=== PATIENT | male | born 1975 | race Caucasian/White ===

== ENCOUNTER 2017-03-26 09:39 | Emergency (ER) | payer OTHER ==
[~2017-03-26] VITALS: Ht 172.7 cm; Wt 72.6 kg
[~2017-03-26 09:39] MED LIST: BENADRYL25 MG PO; PENICILLIN VK250 MG PO; PYRIDIUM100 MG PO; TAMSULOSIN HCL0.4 MG PO
[2017-03-26] MEDS ORDERED: FLOMAX0.4 MG PO (10:00)
[2017-03-26] MEDS ORDERED: HYDROCODON-ACE1 EAC7 PO (10:01)
[2017-03-26 10:02] LABS: URINE BILIRUBIN 1+ (Negative); URINE BLOOD 2+ (Negative); URINE COLOR YELLOW; URINE GLUCOSE-RANDOM* NEGATIVE (Negative); URINE KETONES TRACE (Negative); URINE LEUKOCYTES-REFLEX NEGATIVE (Negative); URINE PROTEIN (DIPSTICK) TRACE (Negative); URINE UROBILINOGEN 0.2 E.U./dl (0.2-1.0)
[2017-03-26 10:05] LABS: ICTOTEST (BILI CONFIRMATORY) Negative (Negative)
[2017-03-26 10:13] LABS: CASTS None Seen /LPF (None Seen); CRYSTALS None Seen /LPF (None Seen); SQUAMOUS 0-3 Few /LPF (0-3); URINE WBC-REFLEX 0-5 Rare /HPF (0-5)
[2017-03-26 10:58] LABS: ABSOLUTE NEUTROPHILS 8.7 thou/uL (1.4-8.2); BASOPHILS 1.3 % (0.0-2.0); EOSINOPHILS 1.2 % (0.0-3.0); HEMATOCRIT 42.7 % (42.0-52.0); HEMOGLOBIN 15.2 gm/dL (14.0-18.0); LYMPHOCYTES 10.9 % (24.0-44.0); MCH 31.9 pg (26.0-34.0); MCHC 35.5 g/dL (28.0-37.0); MCV 89.9 fL (80.0-100.0); MONOCYTES 5.5 % (1.0-8.0); PLATELET COUNT 228 thou/uL (150-400); POLYS 81.1 % (36.0-66.0); RBC 4.75 mil/uL (4.50-6.00); RDW 12.8 % (10.5-14.5); WBC 10.7 thou/uL (4.0-11.0)
[2017-03-26 11:00] LABS: MANUAL DIFF NO
[2017-03-26 11:03] LABS: CALCIUM 9.1 mg/dL (8.5-10.1); CREATININE 1.1 mg/dL (0.7-1.3); POTASSIUM 3.6 mmol/L (3.5-5.1)
[2017-03-26 12:40] VITALS: BP 133/85
== END 2017-03-26 12:41 | disposition home or self-care (01) ==
LOC: ER 09:39
PROVIDERS: Emergency Medicine; Nurse Practitioner
DX: K80.20 Calculus of gallbladder without cholecystitis without obstruction (principal); J45.909 Unspecified asthma, uncomplicated; Z87.442 Personal history of urinary calculi; Z87.891 Personal history of nicotine dependence

== ENCOUNTER 2017-10-16 13:35 | Emergency (ER) | payer OTHER ==
[~2017-10-16] VITALS: Ht 172.7 cm; Wt 73.5 kg
[~2017-10-16 13:35] MED LIST changes: +FLOMAX0.4 MG PO; +HYDROCODON-ACE1 EAC7 PO
[2017-10-16 14:12] LABS: URINE BILIRUBIN NEGATIVE (Negative); URINE BLOOD NEGATIVE (Negative); URINE CLARITY CLEAR; URINE COLOR YELLOW; URINE GLUCOSE-RANDOM* NEGATIVE (Negative); URINE KETONES NEGATIVE (Negative); URINE LEUKOCYTES-REFLEX NEGATIVE (Negative); URINE NITRITE-REFLEX NEGATIVE (Negative); URINE PROTEIN (DIPSTICK) NEGATIVE (Negative); URINE SPECIFIC GRAVITY 1.025 (1.005-1.035); URINE UROBILINOGEN 0.2 E.U./dl (0.2-1.0)
[2017-10-16 14:53] LABS: ABSOLUTE NEUTROPHILS 7.1 thou/uL (1.4-8.2); EOSINOPHILS 2.1 % (0.0-3.0); HEMATOCRIT 45.5 % (42.0-52.0); HEMOGLOBIN 15.6 gm/dL (14.0-18.0); LYMPHOCYTES 14.4 % (24.0-44.0); MCH 31.6 pg (26.0-34.0); MCHC 34.3 g/dL (28.0-37.0); MCV 92.1 fL (80.0-100.0); MONOCYTES 5.4 % (1.0-8.0); PLATELET COUNT 257 thou/uL (150-400); POLYS 77.1 % (36.0-66.0); RBC 4.94 mil/uL (4.50-6.00); WBC 9.3 thou/uL (4.0-11.0)
[2017-10-16 15:06] LABS: CALCIUM 9.2 mg/dL (8.5-10.1); CREATININE 0.9 mg/dL (0.7-1.3)
[2017-10-16 15:13] LABS: ALBUMIN 3.9 g/dL (3.4-5.0); TOTAL BILIRUBIN 0.8 mg/dL (<0.1-1.0)
[2017-10-16] MEDS ORDERED: PHENERGAN 25 MG25 M1 PO (16:18)
[2017-10-16] MEDS ORDERED: FLOMAX0.4 MG PO (16:18)
[2017-10-16] MEDS ORDERED: HYDROCODONE-AP1 EAC6 PO (16:18)
[2017-10-16] MEDS ORDERED: ZPAK PO (16:24)
== END 2017-10-16 16:54 | disposition home or self-care (01) ==
LOC: ER 13:35
PROVIDERS: Physician Assistant
DX: N20.0 Calculus of kidney (principal); R91.1 Solitary pulmonary nodule; J18.9 Pneumonia, unspecified organism; J45.909 Unspecified asthma, uncomplicated; Z87.891 Personal history of nicotine dependence